=== PATIENT | female | born 1940 | race Caucasian/White ===

== ENCOUNTER 2022-06-12 15:26 | Inpatient (IN) | payer MEDICARE, OTHER ==
[~2022-06-12] VITALS: Ht 142.2 cm; Wt 36.3 kg
--- NOTE | 2022-06-12 15:45 | NUR ---
Patient arrived via gurney to room 4A. VSS, afebrile. Alert, oriented x 3-4, ambulatory. No IV acess. All belongings with patinent. Awaiting covid test. Plan is to send to MHU when medically cleared.
[2022-06-12] MEDS ORDERED: GABA600T12 PO (16:04)
[2022-06-12] MEDS ORDERED: POLY17PO18 PO (16:04)
[2022-06-12] MEDS ORDERED: DULO20CA PO (16:04)
[2022-06-12] MEDS ORDERED: LAMO100T2 PO (16:04)
[2022-06-12] MEDS ORDERED: QUET50TA PO (16:04)
[2022-06-12] MEDS ORDERED: ALEN70TA3 PO (16:04)
[2022-06-12] MEDS ORDERED: OXYC10TA49 PO (16:04)
[2022-06-12] MEDS ORDERED: OMEP20CA15 PO (16:04)
[2022-06-12] MEDS ORDERED: MAGN400O6 PO (16:04)
[2022-06-12] MEDS ORDERED: BLOOD SUGAR DIAGNOSTIC 1 EACH STRIP VI ONE (16:45)
--- NOTE | 2022-06-12 17:43 | NUR ---
Patient transferred to MHU via wheelchair with all belongings. No s/s of discomfort or distress. Report to LUKE Gonsales.
[2022-06-12] MEDS ORDERED: ZOLPIDEM 5 MG TABLET PO PRN (18:00)
[2022-06-12] MEDS ORDERED: MAGNESIUM HYDROXIDE 30 ML LIQUID UDC PO PRN ×2 (18:00→20:15)
[2022-06-12] MEDS ORDERED: MAG HYDROX/AL HYDROX/SIMETH 30 ML LIQUID UDC PO PRN (18:00)
--- NOTE | 2022-06-12 18:36 | NUR ---
Admitted a case of 81 years old female from [facility]. Patient is on 5150 status. Patient arrived in a wheel chair accompanied by TRACK COACH from [facility]. Initial report given by Carolyn BUTLER. On admission patient was cooperative to physical assessment and vital signs. Upon face to face, patient appeared alert, oriented to person and place, cooperative, redirectable. Patient denies SI at this moment. Patient refused to sign all admission documents. Patient was also offered brief orientation to unit rules and policies and given copy of patient's rights handbook. Patient belongings were accounted and no contrabands found. Psychiatrist Howard and Medical physician Prince were informed and orders were carried out. Patient is free from pain or any discomfort. Emotional support provided. Fall and safety precautions implemented.
[2022-06-12] MEDS: LORAZEPAM 1 MG TABLET PO PRN (19:58)
[2022-06-12 20:01] VITALS: BP 142/67
[2022-06-12 20:36] LABS: *BILIRUBIN,URIN NEGATIVE (NEGATIVE); *BLOOD, URINE NEGATIVE (NEGATIVE); *CLARITY,URINE CLEAR (CLEAR); *COLOR,URINE YELLOW (YELLOW); *KETONES,URINE NEGATIVE (NEGATIVE); *UROBILINOGEN,URINE 0.2 E.U./dl (NORMAL); LEUKOCYTE ESTERASE ,URINE NEGATIVE (NEGATIVE); NITRITE, URINE NEGATIVE (NEGATIVE); PH,URINE 5.5 (5.0-8.0); UGLUCOSE NEGATIVE (NEGATIVE)
[2022-06-12] MEDS: GABAPENTIN 300 MG CAPSULE PO SCH (21:04)
[2022-06-13] MEDS: OXYCODONE HCL 5 MG TABLET PO PRN ×4 (02:51→22:03)
[2022-06-13] MEDS: PANTOPRAZOLE SODIUM 40 MG TABLET.DR PO SCH (06:21)
--- NOTE | 2022-06-13 06:35 | NUR ---
GPS: Pt.slept for 7 hrs.last night. Oxycodone 10mg given PO earlier for generalized pain (04/03) with relief per pt. Safe environment provided. Denies wanting to harm self. Re-assured prn. Will continue to monitor.
[2022-06-13 07:30] VITALS: BP 127/74
[2022-06-13] MEDS: MIRALAX 17 GM POWD.PACK PO SCH ×2 (09:24→17:26)
[2022-06-13] MEDS: GABAPENTIN 300 MG CAPSULE PO SCH ×4 (09:24→20:44)
--- NOTE | 2022-06-13 09:30 | NUR ---
Patient is given Oxycodone 10 mg at 09:24 for generalized pain rated 10 on the scale of 1 to 10, will be monitored for effectiveness.
[2022-06-13 14:34] LABS: HEMATOCRIT 36.8 % (31.2-41.9); MEAN CORPUSCULAR VOLUME 90.6 fL (75.5-95.3); PLATELET COUNT (AUTO) 410 K/uL (179-408)
--- NOTE | 2022-06-13 14:47 | NUR ---
Patient is depressed, isolative, fixated on pain medications. Pt states "I need to talk to the doctor about my pain killer. I can't wait 6 hours to get another one". Patient is cooperative with nursing care and compliant with medications. Pt. is A/O X 4 to person, place. Self care. Active listening provided. Fall and safety precautions implemented.
[2022-06-13 14:54] LABS: ALANINE AMINOTRANSFERASE 17 U/L (14-59); ALKALINE PHOSPHATASE 75 U/L (50-136); ASPARTATE AMINOTRANSFERASE 18 U/L (15-37); BILIRUBIN,DIRECT < 0.1 mg/dL (0.0-0.2); BILIRUBIN,TOTAL 0.2 mg/dL (0.2-1.0); CARBON DIOXIDE 27 mmol/L (21-32); CHLORIDE 104 mmol/L (98-107); CREATININE 0.9 mg/dL (0.6-1.3); GLUCOSE 90 mg/dL (74-106); MAGNESIUM 1.8 mg/dL (1.8-2.4); PHOSPHOROUS 3.9 mg/dL (2.5-4.9); POTASSIUM 4.7 mmol/L (3.5-5.1); TOTAL PROTEIN, SERUM 7.1 g/dL (6.4-8.2); UREA NITROGEN, BLOOD 12 mg/dL (7-18)
[2022-06-13 15:35] LABS: THYROID STIMULATING HORMONE 3.415 mIU/mL (0.358-3.740)
[2022-06-13 16:00] VITALS: BP 91/65
[2022-06-13 20:01] VITALS: BP 126/60
[2022-06-13] MEDS: ZOLPIDEM 5 MG TABLET PO SCH (20:44)
--- NOTE | 2022-06-13 21:53 | NUR ---
GPS: Remains anxious,depressed and constantly in pain per pt. Meds.as ordered. Re-assured prn. Encouraged to attend groups during the day. Denies SI and contracts for safety. Safe environment provided.
[2022-06-14] MEDS: LORAZEPAM 1 MG TABLET PO PRN (02:28)
[2022-06-14] MEDS: OXYCODONE HCL 5 MG TABLET PO PRN ×3 (05:46→19:49)
[2022-06-14] MEDS: PANTOPRAZOLE SODIUM 40 MG TABLET.DR PO SCH (06:22)
[2022-06-14 07:30] VITALS: BP 136/64
[2022-06-14] MEDS: MIRALAX 17 GM POWD.PACK PO SCH ×2 (09:00→17:04)
[2022-06-14] MEDS: GABAPENTIN 300 MG CAPSULE PO SCH ×4 (09:29→22:02)
[2022-06-14] MEDS: ARIPIPRAZOLE 5 MG TABLET PO SCH (09:30)
[2022-06-14] MEDS: DULOXETINE 30 MG CAPSULE.DR PO SCH (09:31)
[2022-06-14] MEDS: ACETAMINOPHEN 325 MG TABLET PO PRN (10:10)
[2022-06-14] MEDS: PROTEIN SUPPLEMENT (PROSTAT) 30 ML LIQUID PO SCH (10:30)
[2022-06-14] MEDS: NUTRISOURCE FIBER 4 GM PACKET PO SCH (10:30)
[2022-06-14] MEDS ORDERED: SENNOSIDES 1 TABLET PO PRN (12:30)
--- NOTE | 2022-06-14 12:34 | NUR ---
Gps/Shipping Inspector-Refused to attend her group therapy, will come out of her room, irritable, angry demanding to get her pain med. (oxy IR) claimed she's supposed to recieved her pain medications every 6 hours , claimed she's in a lot of pain, when asked pain levels stated " 10" .Tylenol 650 mg po was administered earlier part of the day r/t pain med. not due, noted pt. fell asleep after administration. Needy, demanding, gave menu to fill up
--- NOTE | 2022-06-14 14:18 | NUR ---
SHWETA Initial Discharge Note: Patient currently resides at [address] [place], [place] [id number]. Patient states she is living in an independent living facility and plans to go back there at discharge. Patient states she does not want her sister, Briseida Perez ([phone]) to be involved in her care. SHWETA will continue to work with patient and MD to ensure a safe and proper discharge plan.
[2022-06-14] MEDS ORDERED: LACTULOSE 20 G/30 ML LIQUID UDC PO PRN (17:00)
[2022-06-14 17:04] VITALS: BP 126/76
[2022-06-14 21:05] VITALS: BP 148/80
[2022-06-14] MEDS: ZOLPIDEM 5 MG TABLET PO SCH (22:03)
[2022-06-15] MEDS: LORAZEPAM 1 MG TABLET PO PRN (05:34)
[2022-06-15] MEDS: PANTOPRAZOLE SODIUM 40 MG TABLET.DR PO SCH (06:10)
[2022-06-15 07:30] VITALS: BP 127/76
[2022-06-15] MEDS: PROTEIN SUPPLEMENT (PROSTAT) 30 ML LIQUID PO SCH (08:00)
[2022-06-15] MEDS: ARIPIPRAZOLE 5 MG TABLET PO SCH (08:31)
[2022-06-15] MEDS: DULOXETINE 30 MG CAPSULE.DR PO SCH (08:31)
[2022-06-15] MEDS: MIRALAX 17 GM POWD.PACK PO SCH ×2 (08:31→17:00)
[2022-06-15] MEDS: GABAPENTIN 300 MG CAPSULE PO SCH ×4 (08:32→20:35)
[2022-06-15] MEDS: NUTRISOURCE FIBER 4 GM PACKET PO SCH (08:42)
[2022-06-15] MEDS: OXYCODONE HCL 5 MG TABLET PO PRN ×2 (12:22→18:16)
[2022-06-15 16:00] VITALS: BP 126/75
--- NOTE | 2022-06-15 17:44 | NUR ---
Gps/Transcriber- Refusing to shower, wearing the safe clothes for the last few days, c/o feeling cold, patient more focused on her pain management . Family came by to visit, informed to have bag/belongings checked prior to going in the room
[2022-06-15 20:00] VITALS: BP 115/65
[2022-06-15] MEDS: ZOLPIDEM 5 MG TABLET PO SCH (20:36)
[2022-06-16] MEDS: OXYCODONE HCL 5 MG TABLET PO PRN ×3 (03:21→23:19)
--- NOTE | 2022-06-16 04:58 | NUR ---
Patient A&0x3, ambulatory w/steady gait. Able to make needs known, initiates interaction w/ staff. She denies SI. Med compliant. Snacks and fluid provided as per her requests. Patient sleeping intermittently. Prn oxycodone given for prn for 9/10 abdominal pain. Effective. Patient sleeping well. kept safe at all times.
[2022-06-16] MEDS: PANTOPRAZOLE SODIUM 40 MG TABLET.DR PO SCH (06:03)
[2022-06-16] MEDS: ARIPIPRAZOLE 5 MG TABLET PO SCH (08:49)
[2022-06-16] MEDS: DULOXETINE 30 MG CAPSULE.DR PO SCH (08:49)
[2022-06-16 08:50] VITALS: BP 106/55
[2022-06-16] MEDS: GABAPENTIN 300 MG CAPSULE PO SCH ×4 (08:50→20:51)
[2022-06-16] MEDS: MIRALAX 17 GM POWD.PACK PO SCH ×2 (08:50→16:45)
[2022-06-16] MEDS: PROTEIN SUPPLEMENT (PROSTAT) 30 ML LIQUID PO SCH (08:51)
[2022-06-16] MEDS: NUTRISOURCE FIBER 4 GM PACKET PO SCH (08:52)
--- NOTE | 2022-06-16 13:15 | NUR ---
Gps/Hotel Concierge- Complained of upset stomach, noted patient ate 100 o% of her breakfast , claimed no bm today, had had good result yesterday, adequate fluid intake , passisng out casimiro. Refusal to attend her group therapy, noted patient staying in her room in bed most of the morning
[2022-06-16 16:14] VITALS: BP 110/65
[2022-06-16 20:00] VITALS: BP 125/73
[2022-06-16] MEDS: ZOLPIDEM 5 MG TABLET PO SCH (20:52)
--- NOTE | 2022-06-17 03:52 | NUR ---
GPS NOTES: Patient A&Ox3. Denies SI, verbalized she's "OK". Comes out her room to make simple requests.she is med compliant. Oxycodone given as per her request d/t generalized body pain, 05/04. Patient to be sleeping well upon re-assessment. No distress noted. All needs met and attended. Safety strategies in place.
[2022-06-17] MEDS: ALENDRONATE SODIUM 70 MG TABLET PO SCH (05:14)
[2022-06-17] MEDS: PANTOPRAZOLE SODIUM 40 MG TABLET.DR PO SCH (06:07)
[2022-06-17] MEDS: OXYCODONE HCL 5 MG TABLET PO PRN ×3 (07:04→20:41)
[2022-06-17 07:35] VITALS: BP 121/74
[2022-06-17] MEDS: PROTEIN SUPPLEMENT (PROSTAT) 30 ML LIQUID PO SCH (08:00)
[2022-06-17] MEDS: NUTRISOURCE FIBER 4 GM PACKET PO SCH (09:00)
[2022-06-17] MEDS: ARIPIPRAZOLE 5 MG TABLET PO SCH (09:29)
[2022-06-17] MEDS: MIRALAX 17 GM POWD.PACK PO SCH ×2 (09:30→17:27)
[2022-06-17] MEDS: GABAPENTIN 300 MG CAPSULE PO SCH ×4 (09:30→20:37)
[2022-06-17] MEDS: DULOXETINE 30 MG CAPSULE.DR PO SCH (09:30)
--- NOTE | 2022-06-17 13:21 | NUR ---
Firearms Report: Double Cut Sawyer completed and submitted a DOJ firearms report for 5150 a danger to herself and grave disability certifications. A copy of report has been placed in patient chart.
[2022-06-17 16:26] VITALS: BP 140/69
--- NOTE | 2022-06-17 18:42 | NUR ---
GPS: Nursing Notes: Destructive Behavior To Self: patient is awake and responding to her name, poor insight, loud and angry with staff this am, compliant with her medications, isolative and withdrawn in her room, refusing to participate in therapeutic groups, comes out of her room when it is time her narcotic, depressed mood and anxious affect, unable to formulate a viable plan for self care, gets easily irritable when redirected, continue to monitor for safety, continue with treatment plan.
[2022-06-17 20:31] VITALS: BP 107/66
[2022-06-17] MEDS: ZOLPIDEM 5 MG TABLET PO SCH ×2 (21:00→22:56)
[2022-06-18] MEDS: PANTOPRAZOLE SODIUM 40 MG TABLET.DR PO SCH (06:35)
--- NOTE | 2022-06-18 06:49 | NUR ---
GPS: Pt.slept 7.30 last night. Remains anxious,depressed but denies wanting to harm self. Isolative,withdrawn and only comes out of her room to get her meds. Encouraged to attend daily groups and participate. Pain meds.given prn. Fall precautions observed. Will continue to monitor.
[2022-06-18 07:30] VITALS: BP 110/49
[2022-06-18] MEDS: OXYCODONE HCL 5 MG TABLET PO PRN ×3 (07:52→20:25)
[2022-06-18] MEDS: PROTEIN SUPPLEMENT (PROSTAT) 30 ML LIQUID PO SCH (08:00)
[2022-06-18] MEDS: GABAPENTIN 300 MG CAPSULE PO SCH ×4 (08:35→20:24)
[2022-06-18] MEDS: ARIPIPRAZOLE 5 MG TABLET PO SCH (08:35)
[2022-06-18] MEDS: DULOXETINE 30 MG CAPSULE.DR PO SCH (08:35)
[2022-06-18] MEDS: NUTRISOURCE FIBER 4 GM PACKET PO SCH (08:36)
[2022-06-18] MEDS: MIRALAX 17 GM POWD.PACK PO SCH ×2 (08:36→16:16)
--- NOTE | 2022-06-18 09:49 | NUR ---
Clinical SW Note: Pt asked SW to not speak to her sister, Sandra ([phone]). Pt said she is self-responsible and does not want any staff to speak or release information to her sister.
--- NOTE | 2022-06-18 14:52 | NUR ---
GPS: Nursing Notes: Destructive Behavior To Self: Patient is awake and responding to her name, cooperative with nursing care, interactive with peers, encourage to participate in therapeutic groups, depressed mood and anxious affect, gets easily irritable when redirected, argumentative at times, compliant with her medications, refusing to participate in therapeutic groups, unable to formulate a viable plan for self care, denies SI, continue to monitor for safety, continue with treatment plan.
[2022-06-18 16:29] VITALS: BP 124/48
--- NOTE | 2022-06-18 17:18 | NUR ---
GPS: Nursing Notes: Pain Management - Dr Quinn: Staff called Dr. Quinn to find out when he is coming to see the patient, but staff only able to leave a voice message to call MHU. Yesterday, per Danyel Morrison NP called him to remind him of consultation, according to Danyel Blood NP notes: The pain management consultation, it was obtain on 06/14/22 by DAIANA Morrison, continue to monitor for safety, waiting for Dr. Quinn call back, continue with treatment plan
[2022-06-18 19:48] VITALS: BP 118/50
[2022-06-18] MEDS: ZOLPIDEM 5 MG TABLET PO SCH (20:25)
[2022-06-19] MEDS: OXYCODONE HCL 5 MG TABLET PO PRN ×3 (04:06→16:09)
--- NOTE | 2022-06-19 04:38 | NUR ---
Patient continues to Denies SI. Contract safety strategies w/ the blurb writer. Oxycodone given d/t generalized body pain @2100 and 0430. Sleeping intermittently, making simple request. She is pleasant, A&0x3. Med compliant. Mood stable. Continue observation for safety.
[2022-06-19] MEDS: PANTOPRAZOLE SODIUM 40 MG TABLET.DR PO SCH (06:07)
[2022-06-19 07:30] VITALS: BP 113/62
[2022-06-19] MEDS: PROTEIN SUPPLEMENT (PROSTAT) 30 ML LIQUID PO SCH (08:13)
[2022-06-19] MEDS: ARIPIPRAZOLE 5 MG TABLET PO SCH (08:15)
[2022-06-19] MEDS: GABAPENTIN 300 MG CAPSULE PO SCH ×4 (08:15→20:48)
[2022-06-19] MEDS: DULOXETINE 30 MG CAPSULE.DR PO SCH (08:15)
[2022-06-19] MEDS: MIRALAX 17 GM POWD.PACK PO SCH ×3 (08:16→16:22)
[2022-06-19] MEDS: NUTRISOURCE FIBER 4 GM PACKET PO SCH (08:22)
[2022-06-19] MEDS: ACETAMINOPHEN 325 MG TABLET PO PRN (08:44)
[2022-06-19] MEDS: ENSURE ENLIVE (VAN) 240 ML LIQUID PO SCH (12:00)
[2022-06-19 16:00] VITALS: BP 116/67
--- NOTE | 2022-06-19 17:57 | NUR ---
Patient can be manipulative with pain medications, and medications in general. Set boundaries, and re-educate continuously.
[2022-06-19 20:09] VITALS: BP 99/53
[2022-06-19] MEDS: ZOLPIDEM 5 MG TABLET PO SCH ×2 (20:48→21:49)
[2022-06-20] MEDS: OXYCODONE HCL 5 MG TABLET PO PRN ×4 (01:07→20:33)
--- NOTE | 2022-06-20 04:50 | NUR ---
Oxycodone 10mg given for pain. Effective. Patient slept well w/ no distress noted.
[2022-06-20] MEDS: PANTOPRAZOLE SODIUM 40 MG TABLET.DR PO SCH (06:01)
[2022-06-20 07:30] VITALS: BP 133/63
[2022-06-20] MEDS: DULOXETINE 30 MG CAPSULE.DR PO SCH (08:11)
[2022-06-20] MEDS: ARIPIPRAZOLE 5 MG TABLET PO SCH (08:11)
[2022-06-20] MEDS: GABAPENTIN 300 MG CAPSULE PO SCH ×4 (08:11→20:32)
[2022-06-20] MEDS: MIRALAX 17 GM POWD.PACK PO SCH ×2 (08:12→17:49)
[2022-06-20] MEDS: NUTRISOURCE FIBER 4 GM PACKET PO SCH (08:12)
[2022-06-20] MEDS: PROTEIN SUPPLEMENT (PROSTAT) 30 ML LIQUID PO SCH (08:16)
[2022-06-20] MEDS: ENSURE ENLIVE (VAN) 240 ML LIQUID PO SCH (08:23)
--- NOTE | 2022-06-20 09:24 | NUR ---
Clinical SW Note: SW spoke with pt regarding a safe transportation plan for her and the pt. Pt provided her friend who is also a resident there, Gentry ([phone]) as her choice of contact and transportation. Pt stated he visits everyday. SW will contact Gentry to discuss discharge plan.
--- NOTE | 2022-06-20 10:23 | NUR ---
SHWETA Discharge Update: SHWETA contacted pt's roommate/friend at her Independent living, Gentry ([phone]) per pt's request and discussed pt's discharge plan. Gentry confirmed that he will be able to provide transportation for the pt upon discharge to return to the independent living.
[2022-06-20 16:00] VITALS: BP 112/62
[2022-06-20 20:02] VITALS: BP 106/76
[2022-06-20] MEDS: ZOLPIDEM 5 MG TABLET PO SCH ×2 (21:00→23:11)
[2022-06-21] MEDS: OXYCODONE HCL 5 MG TABLET PO PRN ×3 (05:15→18:30)
[2022-06-21] MEDS: PANTOPRAZOLE SODIUM 40 MG TABLET.DR PO SCH (06:16)
[2022-06-21 07:30] VITALS: BP 93/48
[2022-06-21] MEDS: PROTEIN SUPPLEMENT (PROSTAT) 30 ML LIQUID PO SCH (08:00)
[2022-06-21] MEDS: GABAPENTIN 300 MG CAPSULE PO SCH ×4 (08:39→20:36)
[2022-06-21] MEDS: ARIPIPRAZOLE 5 MG TABLET PO SCH (08:39)
[2022-06-21] MEDS: DULOXETINE 30 MG CAPSULE.DR PO SCH (08:39)
[2022-06-21] MEDS: MIRALAX 17 GM POWD.PACK PO SCH ×2 (08:40→16:41)
[2022-06-21] MEDS: NUTRISOURCE FIBER 4 GM PACKET PO SCH (08:40)
[2022-06-21] MEDS: ENSURE ENLIVE (VAN) 240 ML LIQUID PO SCH (08:41)
--- NOTE | 2022-06-21 14:06 | NUR ---
Gps/Vp Account Director- Informed patient, Dr Quinn (pain management MD) was called by [facility] .Wood Borer , will be in this coming friday to see patient
--- NOTE | 2022-06-21 14:14 | NUR ---
SHWETA Discharge Update: SHWETA contacted pt's friend, Gentry ([phone]) to discuss pt's discharge on 06/24/22. Gentry confirmed he will provide transportation for the pt on Friday at 11AM to return back to the independent living.
[2022-06-21 16:10] VITALS: BP 92/56
[2022-06-21 19:48] VITALS: BP 96/74
[2022-06-21] MEDS: ZOLPIDEM 5 MG TABLET PO SCH (21:37)
[2022-06-22] MEDS: OXYCODONE HCL 5 MG TABLET PO PRN ×4 (03:34→21:52)
[2022-06-22] MEDS: PANTOPRAZOLE SODIUM 40 MG TABLET.DR PO SCH (06:41)
--- NOTE | 2022-06-22 06:55 | NUR ---
GPS: Pt.slept 6.30 last night. Remains anxious,depressed but denies wanting to harm self. Focused on her pain meds. Rest periods encouraged to facilitate sleep. Safe environment provided. Will continue to monitor.
[2022-06-22 07:37] VITALS: BP 107/57
[2022-06-22] MEDS: PROTEIN SUPPLEMENT (PROSTAT) 30 ML LIQUID PO SCH (08:00)
[2022-06-22] MEDS: GABAPENTIN 300 MG CAPSULE PO SCH ×4 (08:47→20:52)
[2022-06-22] MEDS: DULOXETINE 30 MG CAPSULE.DR PO SCH (08:47)
[2022-06-22] MEDS: ARIPIPRAZOLE 5 MG TABLET PO SCH (08:47)
[2022-06-22] MEDS: MIRALAX 17 GM POWD.PACK PO SCH ×2 (08:48→16:35)
[2022-06-22] MEDS: NUTRISOURCE FIBER 4 GM PACKET PO SCH (08:48)
[2022-06-22] MEDS: ENSURE ENLIVE (VAN) 240 ML LIQUID PO SCH (08:48)
--- NOTE | 2022-06-22 13:17 | NUR ---
GPS: Nursing Notes: Destructive Behavior To Self: Patient is awake and responding to her name, refusing to participate in therapeutic groups, resistant with nursing care, compliant with her medications, but no interactions with peers, depressed mood and anxious affect, comes out of her room only to ask for narcotic, isolative and withdrawn in her room, unable to formulate a viable plan for self care, continue to monitor for safety, continue with treatment plan.
[2022-06-22 16:26] VITALS: BP 129/54
[2022-06-22 19:37] VITALS: BP 93/54
[2022-06-22] MEDS: ZOLPIDEM 5 MG TABLET PO SCH ×2 (20:51→21:00)
--- NOTE | 2022-06-22 23:14 | NUR ---
Patient is needy and round the clock r/t Oxycodone 10mg q 6 hrs prn for severe pain management. Pt continues to state pain is d/t post-op gall bladder removal. Will continue to monitor.
[2022-06-23] MEDS: PANTOPRAZOLE SODIUM 40 MG TABLET.DR PO SCH (06:08)
[2022-06-23] MEDS: OXYCODONE HCL 5 MG TABLET PO PRN ×3 (06:11→19:07)
--- NOTE | 2022-06-23 06:38 | NUR ---
Gave Oxycodone 10mg prn per pt request d/t abdominal pain.
[2022-06-23 07:35] VITALS: BP 122/58
[2022-06-23] MEDS: PROTEIN SUPPLEMENT (PROSTAT) 30 ML LIQUID PO SCH (08:00)
[2022-06-23] MEDS: MIRALAX 17 GM POWD.PACK PO SCH ×2 (08:30→16:18)
[2022-06-23] MEDS: ENSURE ENLIVE (VAN) 240 ML LIQUID PO SCH (08:30)
[2022-06-23] MEDS: DULOXETINE 30 MG CAPSULE.DR PO SCH (08:30)
[2022-06-23] MEDS: GABAPENTIN 300 MG CAPSULE PO SCH ×4 (08:30→20:52)
[2022-06-23] MEDS: ARIPIPRAZOLE 5 MG TABLET PO SCH (08:30)
[2022-06-23] MEDS: NUTRISOURCE FIBER 4 GM PACKET PO SCH (08:31)
--- NOTE | 2022-06-23 13:56 | NUR ---
GPS: Nursing Notes: Destructive Behavior To Self: Patient is awake and responding to her name, isolative and withdrawn in her room, refusing to participate in therapeutic groups, depressed mood and anxious affect, denies SI, stated "I don't want to hurt myself... I want to go home..", unable to formulate a viable plan for self care, continue to monitor for safety, continue with treatment plan.
[2022-06-23 15:35] VITALS: BP 90/52
[2022-06-23 19:46] VITALS: BP 93/51
[2022-06-23] MEDS: ZOLPIDEM 5 MG TABLET PO SCH (20:52)
[2022-06-24] MEDS: OXYCODONE HCL 5 MG TABLET PO PRN ×2 (02:23→08:54)
--- NOTE | 2022-06-24 02:23 | NUR ---
Patient awoke around 0215 and requested Oxycondone for abdominal pain. Pt is dependent on this pain medication. Will continue to monitor.
[2022-06-24] MEDS: PANTOPRAZOLE SODIUM 40 MG TABLET.DR PO SCH (06:18)
[2022-06-24] MEDS: ALENDRONATE SODIUM 70 MG TABLET PO SCH (06:19)
--- NOTE | 2022-06-24 06:40 | NUR ---
Educated pt of the importance of staying on her feet and not laying down after taking her Fosamax to help her body slow down the osteoporosis process.
[2022-06-24] MEDS: PROTEIN SUPPLEMENT (PROSTAT) 30 ML LIQUID PO SCH (08:00)
[2022-06-24 08:24] VITALS: BP 101/52
[2022-06-24] MEDS: GABAPENTIN 300 MG CAPSULE PO SCH (08:54)
[2022-06-24] MEDS: MIRALAX 17 GM POWD.PACK PO SCH (08:54)
[2022-06-24] MEDS: DULOXETINE 30 MG CAPSULE.DR PO SCH (08:55)
[2022-06-24] MEDS: NUTRISOURCE FIBER 4 GM PACKET PO SCH (08:55)
[2022-06-24] MEDS: ENSURE ENLIVE (VAN) 240 ML LIQUID PO SCH (08:55)
[2022-06-24] MEDS: ARIPIPRAZOLE 5 MG TABLET PO SCH (08:55)
--- NOTE | 2022-06-24 09:58 | NUR ---
SHWETA Discharge Note: Pt will be discharged to her Independent Living located at [address] [id number] via Ambulance transportation at 11AM. SW spoke with admin coordinator at the facility who states they are ready to accept the patient today. Pts friend, Gentry ([phone]) will provide transportation for the pt to return to her independent living today. Pt is aware and agreeable with discharge plan. Pt stated to this specification writer that she refuses for this SW and staff to release information to her sister, Briseida ([phone]). Pt is alert and oriented x4, is unable to plan for self-care at this time. However, pt is willing to accept care at SNF. Pt denies any suicidal or homicidal ideation. Pt will follow-up with her assigned psychiatrist at [facility] located at [address] [place] [phone] ([phone]) via teletherapy consultation confirmed for Friday at 1:30PM confirmed by Rad. Pt will follow-up with her outpatient Vocational Training Teacher. PHARMACY: [facility] located at [address] [place] [address] [address] [place] [address] ([phone]).
--- NOTE | 2022-06-24 10:41 | NUR ---
Discharge Note Update: Pt will be discharged to her Independent Living located at [address] [phone] via Ambulance transportation at 11:30AM. Pts friend, Gentry ([phone]) will provide transportation for the pt to return to her independent living today. Pt is aware and agreeable with discharge plan. Pt stated to this process description writer that she refuses for this SW and staff to release information to her sister, Briseida ([phone]). Pt is alert and oriented x4, is unable to plan for self-care at this time. However, pt is willing to accept care at SNF. Pt denies any suicidal or homicidal ideation. Pt will follow-up with her assigned psychiatrist at [facility] located at [address] [place] [phone] ([phone]) via teletherapy consultation confirmed for Friday at 1:30PM confirmed by Rad. Pt will follow-up with her outpatient Dot Compliance Coordinator. PHARMACY: [facility] located at [address] [facility] [address], [facility] [address] ([phone]).
--- NOTE | 2022-06-24 10:45 | NUR ---
Discharge Note Update: Pt will be discharged to her Independent Living located at [address] [facility] [address] via pts friend, Isidra ([phone]) transportation for the pt to return to her independent living today at 11:30AM. Pt is aware and agreeable with discharge plan. Pt stated to this brief writer that she refuses for this SW and staff to release information to her sister, Briseida ([phone]). Pt is alert and oriented x4, is unable to plan for self-care at this time. However, pt is willing to accept care at SNF. Pt denies any suicidal or homicidal ideation. Pt will follow-up with her assigned psychiatrist at [facility] located at [address] [place] [phone] ([phone]) via teletherapy consultation confirmed for Friday at 1:30PM confirmed by Rad. Pt will follow-up with her outpatient Prn Physical Therapist. PHARMACY: [facility] located at [address] [facility] [address], [facility] [address] ([phone]).
--- NOTE | 2022-06-24 11:45 | NUR ---
GPS: Nursing Notes: Discharge Notes: Patient is awake and responding to her name, compliant with her medications, A/Ox3, following staff directions, denies SI/HI, denies AH/VH, denies pain or discomfort at this time, denies SOB, discharge to Independent Living at [address] [place] [address], picked up by her friend - Gentry , instructions given to patient, and the doctors to call her pharmacy - [facility] per social organization professor, escorted patient to private vehicle via wheelchair. Patient to follow up with [facility] at [address] [place], [place] [phone] via teletherapy for Friday at 1:30pm. Also, to follow up with her outpatient river rafting guide as soon as possible. Staff called Dr. Quinn to inform him of patient getting discharge, but able to leave a voice message to call the unit.
== END 2022-06-24 11:45 | DRG 885 ==
LOC: ER 15:26 → GPS 16:05
PROVIDERS: ADMIT Psychiatry & Neurology Psychiatry; ATTEND Nurse Practitioner Acute Care
DX: F31.30 Bipolar disorder, current episode depressed, mild or moderate severity, unspecified (principal); M48.55XA Collapsed vertebra, not elsewhere classified, thoracolumbar region, initial encounter for fracture; E44.0 Moderate protein-calorie malnutrition; Z68.1 Body mass index [BMI] 19.9 or less, adult; K86.1 Other chronic pancreatitis; T40.602D Poisoning by unspecified narcotics, intentional self-harm, subsequent encounter; F11.10 Opioid abuse, uncomplicated; E88.09 Other disorders of plasma-protein metabolism, not elsewhere classified; E78.5 Hyperlipidemia, unspecified; G89.4 Chronic pain syndrome; I48.0 Paroxysmal atrial fibrillation; J44.9 Chronic obstructive pulmonary disease, unspecified; Z20.822 Contact with and (suspected) exposure to COVID-19; K59.00 Constipation, unspecified; I10 Essential (primary) hypertension; Z90.49 Acquired absence of other specified parts of digestive tract; F29 Unspecified psychosis not due to a substance or known physiological condition; Z79.891 Long term (current) use of opiate analgesic; Z79.899 Other long term (current) drug therapy; Z88.0 Allergy status to penicillin
CPT/HCPCS: 36415; 83735; 84100; 84443; 85025; 87086; 93005; A4663; J8499